=== PATIENT | male | born 1960 | race Two or more races ===

== ENCOUNTER 2023-09-05 06:25 | Day surgery (SDC) | payer OTHER, MEDICAID ==
[~2023-09-05] VITALS: Ht 180.3 cm; Wt 115.7 kg
[~2023-09-05 06:25] MED LIST: ASCO500T11 PO; ASPI-543 PO; MAGN400T40 PO; [UNRECOGNIZED DRUG - CODE] PO
[2023-09-05] MEDS ORDERED: LIDOCAINE 2%HCL (LOCAL ANESTH.) INJ 20ML MDV ONE (07:51)
[2023-09-05] MEDS ORDERED: IODIXANOL 320MG/ML 100ML BTL IV ONE ×2 (07:51→08:37)
[2023-09-05] MEDS ORDERED: VERAPAMIL 2.5MG/ML INJ 2ML VIAL IV ONE (07:58)
[2023-09-05] MEDS ORDERED: fentaNYL CITRATE 100 MCG/2 ML VL ONE (07:59)
[2023-09-05] MEDS ORDERED: HEPARIN SODIUM (PORCINE) 5000 UNITS/ML 1ML VIAL ONE (08:00)
[2023-09-05] MEDS ORDERED: MIDAZOLAM HCL 2MG/2ML 2ml VIAL (1mg/ml) ONE (08:00)
== END 2023-09-05 10:35 | disposition home or self-care (01) ==
LOC: CATH 06:25
PROVIDERS: ATTEND Internal Medicine Cardiovascular Disease
DX: R94.39 Abnormal result of other cardiovascular function study (principal); I25.10 Atherosclerotic heart disease of native coronary artery without angina pectoris; R07.89 Other chest pain; E78.5 Hyperlipidemia, unspecified; N40.0 Benign prostatic hyperplasia without lower urinary tract symptoms; E66.01 Morbid (severe) obesity due to excess calories; I47.10 Supraventricular tachycardia, unspecified; R06.02 Shortness of breath
CPT/HCPCS: 93458; C1769; C1894; J1644; J2250; J3010; J7030; Q9967; 99152